=== PATIENT | male | born 1965 | race African-American/Black ===

== ENCOUNTER 2021-11-14 09:16 | Emergency (ER) | payer OTHER ==
[~2021-11-14] VITALS: Ht 172.7 cm; Wt 71.2 kg
--- NOTE | 2021-11-14 09:20 | NUR ---
Patient ambulatory, alert and orientedx4 with complaints of body aches, fatigue started yesterday. Denies nausea/vomiting, abdominal pain, SOB. Patient stated with possible covid exposure to family. Vitals stable.
--- NOTE | 2021-11-14 09:21 | NUR ---
MD at bedside, medical screening exam in progress.
[2021-11-14] MEDS ORDERED: NIRMATRELVIR PO (09:45)
[2021-11-14] MEDS ORDERED: RITO100T PO (09:45)
[2021-11-14 10:08] VITALS: BP 157/90
== END 2021-11-14 10:09 | disposition home or self-care (01) ==
LOC: ER 09:18
DX: U07.1 COVID-19 (principal); J45.909 Unspecified asthma, uncomplicated; Z87.891 Personal history of nicotine dependence; K21.9 Gastro-esophageal reflux disease without esophagitis; R03.0 Elevated blood-pressure reading, without diagnosis of hypertension
CPT/HCPCS: 36415; 71045; 99284; C9803; U0003; A4663